=== PATIENT | female | born 1970 | race Caucasian/White ===

== ENCOUNTER 2021-04-08 03:57 | Emergency (ER) | payer OTHER ==
[~2021-04-08] VITALS: Ht 170.2 cm; Wt 157.8 kg
[~2021-04-08 03:57] MED LIST: ACCUNEB SO1.25 MG/1 INH; ANTIVERT25 MG PO; SYMBICORT160 MCG/4. INH; ZOFRAN ODT4 MG PO
[2021-04-08] MEDS ORDERED: WELLBUTRIN 75 M75 M1 PO (04:15)
[2021-04-08 05:13] LABS: URINE BILIRUBIN NEGATIVE (Negative); URINE BLOOD 3+ (Negative); URINE CLARITY CLEAR; URINE COLOR YELLOW; URINE GLUCOSE-RANDOM NEGATIVE (Negative); URINE KETONES NEGATIVE (Negative); URINE LEUKOCYTES-REFLEX 1+ (Negative); URINE NITRITE-REFLEX NEGATIVE (Negative); URINE PROTEIN NEGATIVE (Negative); URINE UROBILINOGEN 0.2 E.U./dl (0.2-1.0)
[2021-04-08 05:25] LABS: CASTS None Seen /LPF (None Seen); CRYSTALS None Seen /LPF (None Seen); MUCUS 0-3 Light strn/LPF (None Seen); SQUAMOUS 0-3 Few /LPF (0-3); URINE RBC 3-10 Few /HPF (0-2); URINE WBC-REFLEX 6-15 Few /HPF (0-5)
[2021-04-08 06:13] LABS: ABSOLUTE BASOPHILS 0.1 thou/uL (0.0-0.2); ABSOLUTE EOSINOPHILS 0.1 thou/uL (0.0-0.7); ABSOLUTE LYMPHOCYTES 1.6 thou/uL (0.8-5.3); ABSOLUTE MONOCYTES 0.6 thou/uL (0.0-1.2); BASOPHILS 0.9 %; EOSINOPHILS 1.6 %; HEMATOCRIT 42.1 % (37.0-47.0); HEMOGLOBIN 14.2 gm/dL (12.0-15.0); LYMPHOCYTES 21.4 %; MCH 28.5 pg (26.0-34.0); MCHC 33.7 g/dL (28.0-37.0); MCV 84.6 fL (80.0-100.0); MONOCYTES 7.6 %; MPV 7.5 fl. (7.2-11.1); NUCLEATED RBCS 0 /100WBC; PLATELET COUNT* 257 thou/uL (150-400); POLYS 68.5 %; RBC 4.97 mil/uL (4.20-5.00); RDW-CV 13.6 % (10.5-14.5); WBC 7.3 thou/uL (4.0-11.0)
[2021-04-08 06:16] LABS: CALCIUM 9.3 mg/dL (8.5-10.1); CREATININE 0.8 mg/dL (0.6-1.3); POTASSIUM 3.9 mmol/L (3.5-5.1)
[2021-04-08] MEDS ORDERED: ZOFRAN ODT4 MG PO ×2 (07:44→08:24)
[2021-04-08] MEDS ORDERED: HYDROCODON-ACE1 EAC8 PO ×2 (07:44→08:24)
[2021-04-08] MEDS ORDERED: LEVAQUIN 500 M500 MG PO ×2 (07:44→08:24)
[2021-04-08] MEDS ORDERED: FLOMAX0.4 MG PO (08:24)
[2021-04-08 08:35] VITALS: BP 170/85
== END 2021-04-08 08:35 | disposition home or self-care (01) ==
LOC: M.ERS 03:57
PROVIDERS: Emergency Medicine
DX: N39.0 Urinary tract infection, site not specified (principal); N20.1 Calculus of ureter; J45.909 Unspecified asthma, uncomplicated; E11.9 Type 2 diabetes mellitus without complications; Z90.710 Acquired absence of both cervix and uterus; Z88.1 Allergy status to other antibiotic agents